=== PATIENT | female | born 1985 | race Caucasian/White ===

== ENCOUNTER 2020-04-11 08:45 | Outpatient (NON) | payer BC, SELFPAY ==
[2020-04-11 22:31] LABS: SARS-CoV-2 RNA PCR Positive
== END 2020-04-11 08:46 ==
PROVIDERS: Visit Provider Obstetrics & Gynecology
DX: U07.1 COVID-19 (principal)
CPT/HCPCS: 87635; C9803; U0003

== ENCOUNTER 2020-09-03 18:20 | Observation (INO) | payer BC, SELFPAY ==
[2020-09-03 18:50] VITALS: BMI 26.0
[2020-09-03 18:57] VITALS: BP 110/63; PULSE 80
[2020-09-03 20:28] LABS: Glucose 1 Hour PP 50gm Dose 149 mg/dL
--- NOTE | 2020-09-05 07:45 | PM.OBTRLD ---
OB - Triage/Final Diagnosis Visit Information Date of evaluation: 09/03/20 Reason for evaluation: threatened labor Comments/Additional reasons for admission: I have assessed the risk for this patient, Alley Campa, and determined that she would benefit from observation care. Evaluation Laboratory results: Laboratory Tests 09/03/20 20:00 Glucose 1 Hr 50 gm 149 H
== END 2020-09-03 20:55 | disposition home or self-care (01) ==
PROVIDERS: Advanced Practice Midwife; Admitting Provider Obstetrics & Gynecology; Visit Provider Obstetrics & Gynecology
DX: O47.03 False labor before 37 completed weeks of gestation, third trimester (principal); Z3A.32 32 weeks gestation of pregnancy
CPT/HCPCS: 36415; 82947; G0378; G0379

== ENCOUNTER 2020-10-18 00:05 | Inpatient (IN) | payer BC, SELFPAY ==
[2020-10-18] VITALS (84 sets, daily range): BP systolic 97–141; BP diastolic 48–102; PULSE 51–139; RESP 16–18; TEMP 36.6–37.1; O2SAT 94–100; BMI 27.1
--- NOTE | 2020-10-18 00:05 | LDADM ---
This patient, Alley Campa, was admitted to Labor/Delivery/Recovery 107 on 10/18/20 at 00:05. Plans for labor, pain management and were discussed with patient. Patient/family oriented to hospital policies and general routines including ID bracelet, bed and alarms, visiting hours, pain management, procedures, bathroom and other care routines, personal items, smoking policy, room service/diet and guest tray routines, infant security routines, and visiting hours. Patient/Family are encouraged to report perceived risks to care and to ask questions if they do not understand what they are told or what they should do. See OBIX for further documentation.
[2020-10-18 00:54] LABS: Basophils Percent Auto 0.6 % (0.2-1.2); Eosinophils Percent Auto 0.6 % (0-4.4); Hematocrit 34.9 % (37.0-47.0); Hemoglobin 11.7 g/dL (12.0-15.0); Immature Granulocyte Absolute 0.04 K/mm3 (0.00-0.031); Immature Granulocyte Percent A 0.6 % (0-0.5); Immature Platelet Fraction Pct 18.2 % (0.9-11.2); Lymphocytes Absolute Auto 1.68 K/mm3 (0.9-3.2); Lymphocytes Percent Auto 23.5 % (18.3-44.2); Mean Corpuscular HGB Conc 33.5 g/dl (32-36); Mean Corpuscular Hemoglobin 31.1 pg (26-34); Mean Corpuscular Volume 92.8 fl (80-100); Mean Platelet Volume 13.3 fl (7.4-10.4); Monocytes Absolute Auto 0.5 K/mm3 (0.1-0.6); Monocytes Percent Auto 7.1 % (2.6-8.5); Neutrophils Absolute Auto 4.9 K/mm3 (1.3-6.7); Neutrophils Percent Auto 67.6 % (45.5-73.1); Platelet Count Result 143 k/mm3 (150-375); Red Blood Count 3.76 M/mm3 (4.2-5.4); Red Cell Distribution Width 12.9 % (11.5-14.5); White Blood Count 7.2 K/mm3 (4.5-10.0)
[2020-10-18] MEDS: AMPICILLIN 2 GM/NS 100 ML 2 GM/100 ML BAG IVPB (01:03)
[2020-10-18] MEDS: LACTATED RINGERS 1,000 ML 125 ML IV CONT ×2 (01:03→08:43)
[2020-10-18] MEDS: OXYTOCIN 30 UNITS/NS 500 ML 30 UNITS/500 ML BAG IV CONT (01:40)
[2020-10-18] MEDS: AMPICILLIN 1 GM/NS 50 ML 1 GM/50 ML BAG IVPB ×2 (05:01→08:43)
--- NOTE | 2020-10-18 08:32 | WPDOBADMIT ---
Obstetrics - Admit Note Admission Note: record reviewed. No pertinent additions to the history and/or any subsequent changes in the physical findings that are not consistent with the expected course of the were found. MIL, 39 weeks, NIPT showed Jacobs syndrome, Polyhydramnios, +GBS, SVE 4/-1, AROM large amount of clear, odorless fluid Additions to the history and/or subsequent changes in the physical findings follow. None.
--- NOTE | 2020-10-18 10:55 | PM.OBPRVD ---
OB - Delivery Note Procedure Delivery date: 10/18/20 Procedure: vaginal delivery events: Polyhydramnios Intrapartal events: None Induction method: AROM and per pitocin protocol Delivery monitor: external FHT and external uterine Route of delivery: Laceration Description: Perineal - 1st Degree Delivery repair: vicryl Specimen: Yes Quantitative Blood Loss (ml): 118 Anesthesia type: Epidural Disposition: other () Narrative: after delivery two skin tags removed with blade, minimal bleeding but stitch placed in each and bleeding resolved, sent to pathology Baby Date of : 10/18/20 Time of : 10:31 Weeks of gestation at delivery: 39 gender: Female Weight (pounds): 7 Weight (ounces): 5 presentation: vertex position: Left Occiput Anterior Placenta delivery description: Spontaneous cord vessel description: 3 Vessels and Clamped/Cut score one minute: 9 score five minutes: 9 Narrative: mother and baby skin to skin doing well
[2020-10-18] MEDS: OXYTOCIN 30 UNITS/NS 500 ML 30 UNITS/500 ML BAG 125 UNITS IV CONT (10:57)
[2020-10-18] MEDS: BENZOCAINE 20% AER SPR (*SP) 56 GM CAN 1 SPRAY TOPICAL (12:59)
[2020-10-18] MEDS: WITCH HAZEL 40 PADS 1 PAD TOPICAL (12:59)
[2020-10-18] MEDS: IBUPROFEN 600 MG TABLET PO ×2 (13:14→20:05)
--- NOTE | 2020-10-18 13:27 | PC.NURSE ---
Patient transferred to post room #280 via wheelchair. Support person present. Oriented to unit, room, information board, rooming in, admission packet and security measures. Patient verbalizes understanding.
[2020-10-18] MEDS: ACETAMINOPHEN 325 MG TABLET 650 MG PO ×2 (15:33→23:42)
[2020-10-19 04:00] VITALS: BP 109/71; PULSE 58; RESP 16; TEMP 36.6; O2SAT 99
[2020-10-19] MEDS: IBUPROFEN 600 MG TABLET PO ×2 (04:38→12:20)
[2020-10-19 05:13] LABS: Hemoglobin 10.3 g/dL (12.0-15.0)
[2020-10-19 09:00] VITALS: BP 117/70; PULSE 67; RESP 18; TEMP 36.3; O2SAT 98
--- NOTE | 2020-10-19 11:33 | PM.OBPNVD ---
OB - PN: Subj Subjective Date/time seen: 10/19/20 11:33 Patient comments: no complaints, pain well controlled, incisional pain, tolerating diet and flatus present OB - PN: Obj Data Labs CBC & Chem 7: 10/19/20 04:38 Labs: Laboratory Results - last 24 hr 10/19/20 04:38 Hgb 10.3 L Hct 31.0 L OB - PN A/P Plan day: 1 Plan: routine care Comments: No problems, routine care, wants d/c Time Spent With Patient Time: Total time spent is greater than 50% in coordination of care (as documented) at patient's floor/unit and/or counseling patient: Exam Const: General: comfortable, no acute distress and alert Resp: Effort & Inspection: normal respiratory effort Auscultation: no crackles, no rales and no rhonchi Cardio: Rate: regular rate Heart sounds: no click, no murmurs and no rubs GI: Inspection: non-distended GI Palp: No Tenderness to palpation present (GI) Auscultation: normal bowel sounds Other: Incision - CDI Extrem: General: normal to inspection, no pedal edema and no calf tenderness
--- NOTE | 2020-10-19 11:34 | PM.OBDSVD ---
DS: Admitting Diagnosis Admitting Diagnosis Admitting Diagnosis: term DS: Discharge Diagnosis Discharge Diagnosis (1) Term delivered: Code(s): O80 - Encounter for full-term uncomplicated delivery Status: Acute OB - DS: Summary OB Procedures : Ultrasound OB Procedures Intrapartum: Spontaneous Vag Delivery OB Procedures: : None Time Spent with Patient Time attestation: Total time spent providing and/or coordinating discharge services: DS: Data Data Completed and Pending Pending studies at discharge: Pending at discharge 10/18/20 11:19 Surgical [PTH] Routine 10/18/20 11:20 Surgical [PTH] Routine Labs on day of discharge: Labs from last 24 hours 10/19/20 04:38 Hgb 10.3 L Hct 31.0 L Discharge Plan Discharge Discharging Clinician: Jake Anders Patient Disposition: Home, Self-Care Activity: pelvic rest Diet: regular Patient Instructions: Antibiotic Form Stand Alone Forms: General Discharge Information Follow-up/Referrals: Jake Anders MD [Physician] - Discharge Medications: Continued prenat.vits,renetta,[id number] Tablet 1 tablet PO DAILY RF: 0 vitamin D3-vitamin K2 1000-90 unit-mcg Tablet,Disintegrating 1 tablet PO DAILY RF: 0 Probiotic 15 billion cell Capsule, Sprinkle 1 cap PO DAILY RF: 0 Date of admission: 10/18/20 00:05 Primary Care Provider: JaylenJason Admitting Provider: Jake Anders Attending physician on admission: Jake Anders Condition: Stable
--- NOTE | 2020-10-19 13:04 | PC.NURSE ---
Patient viewed the discharge video Mother & Baby Care, The First Two Weeks . Patient was given the opportunity and encouraged to ask questions. Patient verbalized understanding of information shared and has been given the mother/baby guide for home reference.
[2020-10-20 07:58] VITALS: BP 107/60; PULSE 87; RESP 20; TEMP 37.2; O2SAT 99
[2020-10-20 11:36] LABS: Rapid Plasma Reagin Non-Reactive (NonReactive)
== END 2020-10-19 14:05 | disposition home or self-care (01) | DRG 807 ==
LOC: ANHLDR 00:12 → ANHOB2 13:35
PROVIDERS: Advanced Practice Midwife; Admitting Provider Obstetrics & Gynecology; PCP Family Medicine; Visit Provider Obstetrics & Gynecology
DX: O40.3XX0 Polyhydramnios, third trimester, not applicable or unspecified (principal); Z37.0 Single live birth; Z3A.39 39 weeks gestation of pregnancy; O99.824 Streptococcus B carrier state complicating childbirth; O70.0 First degree perineal laceration during delivery; O62.3 Precipitate labor
CPT/HCPCS: 36415; 85014; 85018; 85025; 85055; 86592; 86850; 86900; 86901; 88305; 88307; A9270; J0290; J2590; J2795; J7120